=== PATIENT | female | born 1975 | race Caucasian/White ===

== ENCOUNTER 2019-03-28 07:05 | Day surgery (SDC) | payer OTHER ==
[~2019-03-28] VITALS: Ht 160 cm; Wt 83.5 kg
[~2019-03-28 07:05] MED LIST: ACET325T14 PO; ALBU8.5H8 INH; BUPIVACAINE/PF 0.25% ONE; EPINEPHRINE 1 MG/ML, 1ML ONE; IBUP-1223 PO; IRON PO; NEOMY/POLYMYXIN B GU IRR. 1 ML ONE; SERT50TA PO
[2019-03-28] MEDS ORDERED: LACTATED RINGERS 1,000 ML IV SCH (07:26)
[2019-03-28 07:28] VITALS: BP 128/82
[2019-03-28] MEDS ORDERED: LIDOCAINE-MPF 1%, 2ML INFIL ONE (07:30)
[2019-03-28 07:35] LABS: HCG UR SG 1.021 (1.003-1.030)
[2019-03-28] MEDS ORDERED: MIDAZOLAM 1 MG/ML, 2ML ONE (08:29)
[2019-03-28] MEDS ORDERED: FENTANYL PF 250 MCG/5ML ONE (08:30)
[2019-03-28] MEDS ORDERED: PROMETHAZINE 25 MG/ML, 1ML IV PRN (09:00)
[2019-03-28] MEDS ORDERED: OXYcodone 5 MG/5 ML ORAL.SOL UDC PO PRN (09:00)
[2019-03-28] MEDS ORDERED: ONDANSETRON ODT 8 MG PO PRN (09:00)
[2019-03-28] MEDS ORDERED: ONDANSETRON 2MG/ML, 2ML IV PRN (09:00)
[2019-03-28] MEDS ORDERED: ALBUTEROL SULFATE 2.5 MG/3 ML NPPB PRN (09:00)
[2019-03-28] MEDS ORDERED: ACETAMINOPHEN 325 MG TABLET PO PRN (09:00)
[2019-03-28] MEDS ORDERED: PROMETHAZINE 25 MG SUPP PR PRN (09:00)
[2019-03-28] MEDS ORDERED: SUCCINYLCHOLINE 20 MG/ML, 10ML ONE (09:04)
[2019-03-28] MEDS ORDERED: ROCURONIUM 10MG/ML,5ML ONE (09:04)
[2019-03-28] MEDS ORDERED: PROPOFOL 10 MG/ML, 20ML ONE (09:04)
[2019-03-28] MEDS ORDERED: DEXAMETHASONE 4 MG/ML, 1ML ONE (09:04)
[2019-03-28] MEDS ORDERED: ONDANSETRON 2MG/ML, 2ML ONE (09:04)
[2019-03-28] MEDS ORDERED: CEFAZOLIN 1,000 MG ONE (09:04)
[2019-03-28] MEDS ORDERED: GLYCOPYRROLATE 0.2MG/1ML, 5ML ONE (09:04)
[2019-03-28] MEDS ORDERED: NEOSTIGMINE 1 MG/ML, 10ML ONE (09:04)
[2019-03-28] MEDS ORDERED: LIDOCAINE-MPF 2% ,5ML ONE (09:10)
[2019-03-28] MEDS ORDERED: BUPIVACAINE/PF-EPI 0.25% 1:200K INFIL ONE (09:20)
[2019-03-28] MEDS ORDERED: FENTANYL PF 100 MCG/2ML ONE ×2 (10:01→11:02)
[2019-03-28] MEDS ORDERED: OXYcodone 5 MG/5 ML ORAL.SOL UDC ONE (11:02)
[2019-03-28] MEDS ORDERED: HYDROcodone/APAP 7.5-325MG/15ML UDC ONE (11:07)
[2019-03-28] MEDS: FENTANYL PF 100 MCG/2ML IV PRN ×2 (11:17→11:28)
[2019-03-28] MEDS ORDERED: HYDROmorphone 2 MG/ML, 1ML ONE (11:19)
[2019-03-28] MEDS: HYDROmorphone 2 MG/ML, 1ML IVPush PRN ×2 (11:21→11:34)
[2019-03-28] MEDS ORDERED: HYDROcodone/APAP 7.5-325MG/15ML UDC PO PRN (11:30)
== END 2019-03-28 13:40 | disposition home or self-care (01) ==
LOC: OUT 07:05
PROVIDERS: ATTEND Obstetrics & Gynecology Female Pelvic Medicine and Reconstructive Surgery
DX: D25.9 Leiomyoma of uterus, unspecified (principal); N92.1 Excessive and frequent menstruation with irregular cycle; N83.02 Follicular cyst of left ovary; N83.01 Follicular cyst of right ovary; N39.46 Mixed incontinence; N94.6 Dysmenorrhea, unspecified; N81.89 Other female genital prolapse; N32.81 Overactive bladder; D50.9 Iron deficiency anemia, unspecified; G43.909 Migraine, unspecified, not intractable, without status migrainosus; K21.9 Gastro-esophageal reflux disease without esophagitis; J45.909 Unspecified asthma, uncomplicated
CPT/HCPCS: 57265; 57282; 57288; 58552; 81025; 88307; C1771; J0171; J0330; J0690; J1100; J1170; J2250; J2405; J2704; J2710; J3010; J3490; J7120